=== PATIENT | male | born 1995 | race African-American/Black ===

== ENCOUNTER 2019-05-24 07:01 | Emergency (ER) | payer SELFPAY ==
[~2019-05-24] VITALS: Ht 188 cm; Wt 109.1 kg
[2019-05-24] MEDS ORDERED: OLAN10TA3 PO (07:09)
[2019-05-24 07:33] LABS: BASOPHILS % (AUTO) 0.4 % (0.0-2.0); EOSINOPHILS % (AUTO) 1.4 % (1.0-6.0); HEMATOCRIT 42.4 % (41-53); LYMPHOCYTES # (AUTO) 1.2 K/uL (1.0-4.8); LYMPHOCYTES % (AUTO) 13.5 % (22.0-44.0); MEAN CORPUSCULAR HEMOGLOBIN 25.8 pg (26.0-34.0); MEAN CORPUSCULAR HGB CONC 32.9 G/dL (31.0-37.0); MEAN CORPUSCULAR VOLUME 78 fL (80-100); MONOCYTES # (AUTO) 0.4 K/uL (0.1-1.0); MONOCYTES % (AUTO) 4.8 % (2.0-9.0); NEUTROPHILS # (AUTO) 6.9 K/uL (1.8-7.7); NEUTROPHILS % (AUTO) 79.9 % (40.0-70.0); PLATELET COUNT (AUTO) 274 K/uL (150-450); RED BLOOD CELL COUNT(AUTO) 5.41 MIL/uL (4.50-5.90); RED CELL DISTRIBUTION WIDTH 14.8 % (11.5-14.5)
[2019-05-24 07:48] LABS: ANION GAP 10 mmol/L (8-16); CARBON DIOXIDE 25 mmol/L (22-29); CHLORIDE 104 mmol/L (98-107); CREATININE 0.95 mg/dL (0.60-1.30); GLOMERULAR FILTR. RATE CALC > 60 mL/min (>60); GLUCOSE,RANDOM 102 mg/dL (70-110); SODIUM SERUM 139 mmol/L (136-145); UREA NITROGEN, BLOOD 13 mg/dL (7-18)
[2019-05-24 07:49] LABS: AMPHET/METH SCREEN,URINE NEGATIVE (NEGATIVE); BARBITURATE SCREEN, URINE NEGATIVE (NEGATIVE); BENZODIAZEPINES SCREEN,URINE NEGATIVE (NEGATIVE); CANNABINOID SCREEN,URINE POSITIVE (NEGATIVE); COCAINE SCREEN,URINE NEGATIVE (NEGATIVE); METHADONE SCREEN, URINE NEGATIVE (NEGATIVE); OPIATE SCREEN,URINE NEGATIVE (NEGATIVE)
[2019-05-24 07:50] LABS: PHENCYCLIDINE SCREEN,URINE NEGATIVE (NEGATIVE)
[2019-05-24 07:53] LABS: ALANINE AMINOTRANSFERASE 68 U/L (12-78); ALBUMIN 4.1 g/dL (3.4-5.0); ALKALINE PHOSPHATASE 94 U/L (46-116); ASPARTATE AMINOTRANSFERASE 82 U/L (15-37); BILIRUBIN,TOTAL 0.7 mg/dL (0.1-1.0); TOTAL PROTEIN, SERUM 7.8 g/dL (6.4-8.2)
[2019-05-24 11:17] VITALS: BP 127/91
== END 2019-05-24 07:43 | disposition left against medical advice (07) ==
LOC: EMS 07:01
DX: R44.0 Auditory hallucinations (principal); R44.1 Visual hallucinations; F31.9 Bipolar disorder, unspecified; F17.210 Nicotine dependence, cigarettes, uncomplicated; F12.90 Cannabis use, unspecified, uncomplicated; Z88.8 Allergy status to other drugs, medicaments and biological substances
CPT/HCPCS: 36415; 80053; 80307; 85025; 99283; G0480

== ENCOUNTER 2022-05-22 07:01 | Inpatient (IN) | payer MEDICAID, OTHER ==
[~2022-05-22] VITALS: Ht 180.3 cm; Wt 107.6 kg
[~2022-05-22 07:01] MED LIST: OLAN10TA74 PO
[2022-05-22 07:57] LABS: AMPHET/METH SCREEN,URINE NEGATIVE (NEGATIVE); BARBITURATE SCREEN, URINE NEGATIVE (NEGATIVE); BENZODIAZEPINES SCREEN,URINE NEGATIVE (NEGATIVE); CANNABINOID SCREEN,URINE POSITIVE (NEGATIVE); COCAINE SCREEN,URINE NEGATIVE (NEGATIVE); METHADONE SCREEN, URINE NEGATIVE (NEGATIVE); OPIATE SCREEN,URINE NEGATIVE (NEGATIVE); PHENCYCLIDINE SCREEN,URINE NEGATIVE (NEGATIVE)
[2022-05-22] MEDS ORDERED: LORazepam 2 MG/ML VIAL IM ONE (08:00)
[2022-05-22] MEDS ORDERED: DiphenhydrAMINE HCL 50 MG/ML VIAL IM ONE (08:00)
[2022-05-22] MEDS ORDERED: HALOPERIDOL LACTATE 5 MG/ML VIAL IM ONE (08:00)
[2022-05-22 09:17] LABS: BASOPHILS % (AUTO) 0.5 % (0.0-2.0); EOSINOPHILS % (AUTO) 0.7 % (1.0-6.0); HEMATOCRIT 39.5 % (41-53); HEMOGLOBIN 12.8 g/dL (13.5-17.5); LYMPHOCYTES # (AUTO) 1.3 K/uL (1.0-4.8); LYMPHOCYTES % (AUTO) 16.6 % (22.0-44.0); MEAN CORPUSCULAR HEMOGLOBIN 25.8 pg (26.0-34.0); MEAN CORPUSCULAR HGB CONC 32.5 G/dL (31.0-37.0); MEAN CORPUSCULAR VOLUME 80 fL (80-100); MONOCYTES # (AUTO) 0.4 K/uL (0.1-1.0); MONOCYTES % (AUTO) 5.7 % (2.0-9.0); NEUTROPHILS % (AUTO) 76.5 % (40.0-70.0); PLATELET COUNT (AUTO) 265 K/uL (150-450); RED BLOOD CELL COUNT(AUTO) 4.97 MIL/uL (4.50-5.90); RED CELL DISTRIBUTION WIDTH 14.5 % (11.5-14.5)
[2022-05-22 09:23] LABS: ANION GAP 10 mmol/L (8-16); CALCIUM, TOTAL 8.5 mg/dL (8.8-10.5); CARBON DIOXIDE 25 mmol/L (22-29); CHLORIDE 102 mmol/L (98-107); GLUCOSE,RANDOM 126 mg/dL (70-110); POTASSIUM 3.6 mmol/L (3.5-5.1); SODIUM SERUM 137 mmol/L (136-145); UREA NITROGEN, BLOOD 13 mg/dL (7-18)
[2022-05-22 09:24] LABS: GLOMERULAR FILTR. RATE CALC > 60 mL/min (>60)
[2022-05-22 09:29] LABS: ALANINE AMINOTRANSFERASE 67 U/L (12-78); ALBUMIN 3.7 g/dL (3.4-5.0); ALKALINE PHOSPHATASE 80 U/L (46-116); ASPARTATE AMINOTRANSFERASE 85 U/L (15-37); BILIRUBIN,TOTAL 0.8 mg/dL (0.1-1.0); TOTAL PROTEIN, SERUM 7.4 g/dL (6.4-8.2)
[2022-05-22 11:02] LABS: COVID AG,FIA SOURCE NASAL SWAB
[2022-05-22 15:28] VITALS: BP 142/62
[2022-05-22] MEDS: LORazepam 2 MG TABLET PO PRN ×2 (16:00→20:00)
[2022-05-22] MEDS: HALOPERIDOL 5 MG TABLET PO PRN ×2 (16:00→20:00)
[2022-05-22] MEDS: ZOLPIDEM TARTRATE 10 MG TABLET PO PRN (20:00)
[2022-05-23] MEDS: HALOPERIDOL 5 MG TABLET PO PRN ×4 (01:23→17:14)
[2022-05-23] MEDS: LORazepam 2 MG TABLET PO PRN ×4 (01:24→17:13)
[2022-05-23 04:08] VITALS: BP 130/78
[2022-05-23 08:10] VITALS: BP 138/76
[2022-05-23] MEDS ORDERED: CloNIDine HCL 0.1 MG TABLET PO PRN (10:30)
[2022-05-23] MEDS ORDERED: DOCUSATE SODIUM 100 MG CAPSULE PO PRN (10:30)
[2022-05-23] MEDS ORDERED: NICOTINE 14 MG/24 HOUR PATCH TD PRN (10:30)
[2022-05-23] MEDS ORDERED: MAG HYDROX/AL HYDROX/SIMETH ES 30 ML SUSPENSION UDCUP PO PRN (10:30)
[2022-05-23] MEDS ORDERED: LOPERAMIDE HCL 2 MG CAPSULE PO PRN (10:30)
[2022-05-23] MEDS ORDERED: ALBUTEROL SULFATE HFA 90 MCG/PUFF 8 GM INHALER IH PRN (10:30)
[2022-05-23] MEDS ORDERED: PETROLATUM,WHITE 28 GM JELLY TP PRN (10:30)
[2022-05-23] MEDS ORDERED: IBUPROFEN 400 MG TABLET PO PRN (10:30)
[2022-05-23] MEDS ORDERED: MAGNESIUM HYDROXIDE SUSPENSION 30 ML UDCUP PO PRN (10:30)
[2022-05-23] MEDS ORDERED: ACETAMINOPHEN 325 MG TABLET PO PRN (10:30)
[2022-05-23] MEDS ORDERED: GuaiFENesin/D-METHORPHAN [SUGAR-FREE] 200-20MG/10 ML SYRUP UDCUP PO PRN (10:30)
[2022-05-23] MEDS ORDERED: ONDANSETRON HCL 4 MG TABLET PO PRN (10:30)
[2022-05-23 16:23] VITALS: BP 137/70
[2022-05-23] MEDS: NICOTINE 21 MG/24 HOUR PATCH TD PRN (19:09)
[2022-05-23] MEDS: ZOLPIDEM TARTRATE 10 MG TABLET PO PRN (20:19)
[2022-05-23] MEDS: OLANZapine 10 MG TABLET PO SCH (20:19)
[2022-05-24] MEDS: LORazepam 2 MG TABLET PO PRN ×3 (08:19→23:13)
[2022-05-24] MEDS: NICOTINE 21 MG/24 HOUR PATCH TD PRN (08:19)
[2022-05-24] MEDS: HALOPERIDOL 5 MG TABLET PO PRN ×3 (08:19→23:34)
[2022-05-24 08:36] VITALS: BP 144/75
[2022-05-24] MEDS: NICOTINE POLACRILEX 2 MG LOZENGE PO PRN ×3 (11:11→20:22)
[2022-05-24] MEDS: OLANZapine 10 MG TABLET PO SCH (20:09)
[2022-05-24 20:21] VITALS: BP 128/78
[2022-05-24] MEDS: ZOLPIDEM TARTRATE 10 MG TABLET PO PRN (23:13)
[2022-05-25] MEDS: ZOLPIDEM TARTRATE 10 MG TABLET PO PRN ×2 (01:49→22:00)
[2022-05-25] MEDS: HALOPERIDOL 5 MG TABLET PO PRN ×3 (04:59→21:59)
[2022-05-25] MEDS: LORazepam 2 MG TABLET PO PRN ×4 (04:59→21:59)
[2022-05-25 08:36] VITALS: BP 131/66
[2022-05-25] MEDS: NICOTINE POLACRILEX 2 MG LOZENGE PO PRN ×2 (13:01→17:01)
[2022-05-25 21:00] VITALS: BP 131/66
[2022-05-25] MEDS: OLANZapine 10 MG TABLET PO SCH (21:59)
[2022-05-26] MEDS: HALOPERIDOL 5 MG TABLET PO PRN ×2 (03:23→08:07)
[2022-05-26] MEDS: LORazepam 2 MG TABLET PO PRN (08:07)
[2022-05-26 08:38] VITALS: BP 121/62
[2022-05-26] MEDS ORDERED: NICOTINE 14 MG/24 HOUR PATCH TD SCH (09:00)
[2022-05-26] MEDS ORDERED: OLAN10 PO (10:25)
== END 2022-05-26 14:57 | disposition home or self-care (01) | DRG 750 ==
LOC: EMS 07:03 → B3A 14:00
PROVIDERS: ADMIT Psychiatry & Neurology Psychiatry; ATTEND Psychiatry & Neurology Psychiatry
DX: F20.0 Paranoid schizophrenia (principal); R45.851 Suicidal ideations; F31.9 Bipolar disorder, unspecified; F12.10 Cannabis abuse, uncomplicated; D64.9 Anemia, unspecified; R73.9 Hyperglycemia, unspecified; E66.9 Obesity, unspecified; Z20.822 Contact with and (suspected) exposure to COVID-19; Z88.8 Allergy status to other drugs, medicaments and biological substances; Z87.891 Personal history of nicotine dependence; Z68.33 Body mass index [BMI] 33.0-33.9, adult
CPT/HCPCS: 80053; 80307; 85025; 99285; G0480; J1200; J1630; J2060; Q9967